=== PATIENT | male | born 1975 | race Caucasian/White ===

== ENCOUNTER 2017-02-19 19:11 | Emergency (ER) | payer BC ==
--- NOTE | 2017-02-19 19:20 | EDM.PDOC ---
ED HPI GENERAL MEDICAL PROBLEM - General Chief Complaint: General Stated Complaint: FALL LADDER/LT RIBCAGE PAIN Time Seen by Provider: 02/19/17 19:13 Source of Information: Reports: Patient History Limitations: Reports: No Limitations - History of Present Illness INITIAL COMMENTS - FREE TEXT/NARRATIVE: HISTORY AND PHYSICAL: Left rib pain History of present illness: Patient is a 42-year-old male that presents to the emergency room with complaints of left rib pain after falling approximately 6 feet off a ladder. Denies any loss of consciousness. Denies any neck pain. Some generalized back pain as he does have some history of "bulging disks". Review of systems: As per history of present illness and below otherwise all systems reviewed and negative. Past medical history: As per history of present illness and as reviewed below otherwise noncontributory. Surgical history: As per history of present illness and as reviewed below otherwise noncontributory. Social history: No reported history of drug or alcohol abuse. Family history: As per history of present illness and as reviewed below otherwise noncontributory. Physical exam: HEENT: Atraumatic, normocephalic, pupils reactive, negative for conjunctival pallor or scleral icterus, mucous membranes moist, throat clear, neck supple, nontender, trachea midline. Cervical spine palpated with no tenderness, crepitus , step-offs, or obvious deformities. Lungs: Clear to auscultation, breath sounds equal bilaterally, chest nontender. Heart: S1S2, regular, negative for clicks, rubs, or JVD. Abdomen: Soft, nondistended, nontender. Negative for masses or hepatosplenomegaly. Negative for costovertebral tenderness. Pelvis: Stable nontender. Genitourinary: Deferred. Rectal: Deferred. Back: Spine was palpated with no tenderness to palpation, crepitus, step-offs, or obvious deformities. Extremities: Bruising noted to chest wall with tenderness to palpation. Neurovascular unremarkable. Denies any numbness or tingling to extremities. Neuro: Awake, alert, oriented. Cranial nerves II through XII unremarkable. Cerebellum unremarkable. Motor and sensory unremarkable throughout. Exam nonfocal. Diagnostics: X-ray left rib and 2 view chest Therapeutics: Toradol 60 mg IM Impression: Contusion Plan: 1. Apply ice to the area as needed for discomfort. May take Tylenol and/or ibuprofen as directed for pain and discomfort. 2. Please do not avoid coughing or deep breathing as discussed. 3. Follow up with her primary care provider 1-2 days. Return to the emergency room as needed as discussed. Definitive disposition and diagnosis as appropriate pending reevaluation and review of above. Onset: Today Onset Date: 02/19/17 Onset Time: 14:00 Duration: Hour(s): Location: Reports: Chest (Left) Improves with: Reports: Rest Worsens with: Reports: Breathing left rib area Pain Score (Numeric/FACES): 5 - Related Data Allergies Allergy/AdvReac Type Severity Reaction Status Date / Time No Known Allergies Allergy Verified 08/01/16 13:43 Home Meds: Home Meds Omeprazole 20 mg PO DAILY 10/24/13 [History] Amoxicillin/Potassium Clav [Augmentin 875-125 Tablet] 1 each PO BID #14 tablet 08/01/16 [Rx] Past Medical History HEENT History: Reports: Otitis Media, Sinusitis Gastrointestinal History: Reports: GERD Social & Family History - Family History Family Medical History: Noncontributory - Tobacco Use Smoking Status *Q: Never Smoker Years of Tobacco use: 12 - Caffeine Use Caffeine Use: Reports: None - Alcohol Use Days Per Week of Alcohol Use: 0 Number of Drinks Per Day: 0 Total Drinks Per Week: 0 - Recreational Drug Use Recreational Drug Use: No Drug Use in Last 12 Months: No ED ROS GENERAL - Review of Systems Review Of Systems: ROS reveals no pertinent complaints other than HPI. ED EXAM, GENERAL - Physical Exam Exam: See Below (See dictation) Course - Vital Signs Last Recorded V/S: Last Vital Signs Temp 36.8 C 02/19/17 19:17 Pulse 84 02/19/17 19:17 Resp 18 02/19/17 19:17 BP 121/76 02/19/17 19:17 Pulse Ox 98 02/19/17 19:17 - Orders/Labs/Meds Orders: Active Orders 24 hr Category Date Time Status Chest 2V [CR] Stat Exams 02/19/17 19:17 Taken Ribs 2V wo Chest Lt [CR] Stat Exams 02/19/17 19:17 Taken Meds: Medications Discontinued Medications Generic Name Dose Route Start Last Admin Trade Name Freq PRN Reason Stop Dose Admin Ketorolac Tromethamine 60 mg 02/19/17 19:21 02/19/17 19:50 Toradol IM 02/19/17 19:22 60 mg ONETIME ONE Administration Departure - Departure Time of Disposition: 19:55 Disposition: Home, Self-Care 01 Condition: Good Clinical Impression: Rib injury - Discharge Information Referrals: PCP,None [Primary Care Provider] - Forms: ED Department Discharge Additional Instructions: The following information is given to patients seen in the emergency department who are being discharged to home. This information is to outline your options for follow-up care. We provide all patients seen in our emergency department with a follow-up referral. The need for follow-up, as well as the timing and circumstances, are variable depending upon the specifics of your emergency department visit. If you don't have a primary care physician on staff, we will provide you with a referral. We always advise you to contact your personal physician following an emergency department visit to inform them of the circumstance of the visit and for follow-up with them and/or the need for any referrals to a consulting specialist. The emergency department will also refer you to a specialist when appropriate. This referral assures that you have the opportunity for followup care with a specialist. All of these measure are taken in an effort to provide you with optimal care, which includes your followup. Under all circumstances we always encourage you to contact your private physician who remains a resource for coordinating your care. When calling for followup care, please make the office aware that this follow-up is from your recent emergency room visit. If for any reason you are refused follow-up, please contact the [facility] emergency department at and asked to speak to the emergency department charge nurse. [facility] [address] [place] [id number] 1. Apply ice to the area as needed for discomfort. May take Tylenol and/or ibuprofen as directed for pain and discomfort. 2. Please do not avoid coughing or deep breathing as discussed. 3. Follow up with her primary care provider 1-2 days. Return to the emergency room as needed as discussed. - My Orders Last 24 Hours: My Active Orders 02/19/17 19:17 Chest 2V [CR] Stat Ribs 2V wo Chest Lt [CR] Stat - Assessment/Plan Last 24 Hours: My Active Orders 02/19/17 19:17 Chest 2V [CR] Stat Ribs 2V wo Chest Lt [CR] Stat
[2017-02-19] MEDS ORDERED: Ketorolac 60 MG/2 ML SDV IM ONE (19:21)
[2017-02-19 20:04] VITALS: BP 117/73
--- NOTE | 2017-02-23 12:52 | CR ---
EXAM DATE: 02/19/17 PATIENT'S AGE: 42 Patient: ANGELINA GARCIA Facility: [place], [place] Site . Site : 1975 Study: XRay Chest [id number]/1/2017 7:41:17 PM Ordering Physician: Doctor Alvarez Final Report: INDICATION: Fall TECHNIQUE: Chest 2 views. COMPARISON: None available FINDINGS: Cardiovascular and mediastinum: Heart size and vasculature are normal in caliber and appearance. Mediastinum is within normal limits. Lungs and pleural spaces: Lungs are clear. No sign of infiltrate or mass. No sign of pleural effusion. No pneumothorax. Bones and soft tissues: No significant findings. IMPRESSION: No sign of acute disease. Dictated by Femi William MD @ 02/19/2017 7:46:23 PM Dictated by: Femi William MD @ 02/19/2017 19:46:28 (Electronic Signature) Report Signed by Proxy. [email or web address]
--- NOTE | 2017-02-23 12:54 | CR ---
EXAM DATE: 02/19/17 PATIENT'S AGE: 42 Patient: ANGELINA GARCIA Facility: [place], [place] Site . Site : 1975 Study: XRay Chest RIBS [id number]/1/2017 7:41:40 PM Ordering Physician: Doctor Alvarez Final Report: INDICATION: Fall TECHNIQUE: Three views of the left ribs. COMPARISON: None available FINDINGS/IMPRESSION : No acute displaced rib fracture is seen. No discrete soft tissue abnormality identified. Dictated by Femi William MD @ 02/19/2017 7:49:34 PM Dictated by: Femi William MD @ 02/19/2017 19:50:13 (Electronic Signature) Report Signed by Proxy. MARGY
== END 2017-02-19 20:04 | disposition home or self-care (01) ==
LOC: MW.ED 19:11
DX: S20.212A Contusion of left front wall of thorax, initial encounter (principal); W11.XXXA Fall on and from ladder, initial encounter
CPT/HCPCS: 71020; 71100; 96372; 99283; J1885

== ENCOUNTER 2018-01-22 13:59 | Emergency (ER) | payer BC ==
--- NOTE | 2018-01-22 14:14 | EDM.PDOC ---
ED HPI GENERAL MEDICAL PROBLEM - General Chief Complaint: Upper Extremity Injury/Pain Stated Complaint: SMASHED RIGHT MIDDLE FINGER Time Seen by Provider: 01/22/18 14:01 Source of Information: Reports: Patient History Limitations: Reports: No Limitations - History of Present Illness INITIAL COMMENTS - FREE TEXT/NARRATIVE: HISTORY AND PHYSICAL: History of present illness: Patient is a 43-year-old male who is brought to the emergency room with complaints of a crush injury to his right third distal digit. He states that this finger was crushed by a trailer hitch. Small laceration to pad of finger with some bruising under the proximal base of nail bed. Tetanus is up-to-date. Review of systems: As per history of present illness and below otherwise all systems reviewed and negative. Past medical history: As per history of present illness and as reviewed below otherwise noncontributory. Surgical history: As per history of present illness and as reviewed below otherwise noncontributory. Social history: No reported history of drug or alcohol abuse. Family history: As per history of present illness and as reviewed below otherwise noncontributory. Physical exam: General: Well-developed and well-nourished 43-year-old male. Alert and oriented. Nontoxic appearing and in no acute distress. HEENT: Atraumatic, normocephalic, pupils equal and reactive bilaterally, negative for conjunctival pallor or scleral icterus, mucous membranes moist, throat clear, neck supple, nontender, trachea midline. No drooling or trismus noted. No meningeal signs Lungs: Clear to auscultation, breath sounds equal bilaterally, chest nontender. Heart: S1S2, regular rate and rhythm without overt murmur Abdomen: Soft, nondistended, nontender. Negative for masses or hepatosplenomegaly. Negative for costovertebral tenderness. Pelvis: Stable nontender. Genitourinary: Deferred. Rectal: Deferred. Skin: 0.5cm superficial laceration to the distal portion of the pad on the right third digit. Bruising under the proximal nail bed of the affected finger. Pain with palpation. Otherwise skin is intact, warm, dry. No lesions or rashes noted. Extremities: Moves all per self, pain with palpation along the distal finger tip of right 3rd digit. Cap refill less than 3 seconds. No other extremity involvement. Neurovascular unremarkable. Neuro: Awake, alert, oriented. Cranial nerves II through XII unremarkable. Cerebellum unremarkable. Motor and sensory unremarkable throughout. Exam nonfocal. Notes: No fracture or dislocation identified. Place patient in a spoon splint after wound care/dressing applied. Supportive care measures were reviewed and discussed. He voices understanding and is agreeable to plan of care. Denies any further questions or concerns at this time. Diagnostics: X-ray Therapeutics: Wound Care, Bacitracin Ointment, Finger Splint Prescription: Tramadol (Disp #15) Impression: Crush Injury, Right Plan: 1. Rest, ice, elevate the affected extremity. Wear Splint for comfort. 2. Tylenol and/or ibuprofen as needed for pain management. Tramadol for moderate /severe pain. May cause drowsiness, do not drive while taking. 3. Follow-up with your primary care provider in the next 1-2 days. Return to the ED as needed and as discussed. Definitive disposition and diagnosis as appropriate pending reevaluation and review of above. Right middle finger Pain Score (Numeric/FACES): 5 - Related Data Allergies Allergy/AdvReac Type Severity Reaction Status Date / Time No Known Allergies Allergy Verified 01/22/18 14:15 Home Meds: Home Meds Omeprazole 20 mg PO DAILY 10/24/13 [History] Past Medical History HEENT History: Reports: Otitis Media, Sinusitis Cardiovascular History: Reports: None Respiratory History: Reports: None Gastrointestinal History: Reports: GERD Genitourinary History: Reports: None Musculoskeletal History: Reports: None Neurological History: Reports: None Psychiatric History: Reports: None Endocrine/Metabolic History: Reports: None Hematologic History: Reports: None Immunologic History: Reports: None Oncologic (Cancer) History: Reports: None Dermatologic History: Reports: None - Infectious Disease History Infectious Disease History: Reports: Chicken Pox - Past Surgical History Head Surgeries/Procedures: Reports: None HEENT Surgical History: Reports: Oral Surgery Male Surgical History: Reports: Vasectomy Social & Family History - Family History Family Medical History: Noncontributory - Caffeine Use Caffeine Use: Reports: None Review of Systems - Review of Systems Review Of Systems: ROS reveals no pertinent complaints other than HPI. ED EXAM, GENERAL - Physical Exam Exam: See Below (See dictation) Course - Vital Signs Last Recorded V/S: Last Vital Signs Temp 97.0 F 08/04/18 14:16 Pulse 89 01/22/18 14:16 Resp 14 01/22/18 14:16 BP 141/81 H 01/22/18 14:16 Pulse Ox 95 01/22/18 14:16 - Orders/Labs/Meds Orders: Active Orders 24 hr Category Date Time Status Communication Order [RC] STAT Care 01/22/18 14:25 Active Fingers Third Digit Rt F7 [CR] Stat Exams 01/22/18 14:02 Taken Meds: Medications Discontinued Medications Generic Name Dose Route Start Last Admin Trade Name Sravanthi PRN Reason Stop Dose Admin Bacitracin 1 dose 01/22/18 14:25 Bacitracin Oint 1 Gm TOP 01/22/18 14:26 ONETIME ONE Departure - Departure Time of Disposition: 14:38 Disposition: Home, Self-Care 01 Clinical Impression: Crush injury - Discharge Information Instructions: Crush Injury of the Hand, [id number] Referrals: PCP,None [Primary Care Provider] - Forms: ED Department Discharge Additional Instructions: The following information is given to patients seen in the emergency department who are being discharged to home. This information is to outline your options for follow-up care. We provide all patients seen in our emergency department with a follow-up referral. The need for follow-up, as well as the timing and circumstances, are variable depending upon the specifics of your emergency department visit. If you don't have a primary care physician on staff, we will provide you with a referral. We always advise you to contact your personal physician following an emergency department visit to inform them of the circumstance of the visit and for follow-up with them and/or the need for any referrals to a consulting specialist. The emergency department will also refer you to a specialist when appropriate. This referral assures that you have the opportunity for follow-up care with a specialist. All of these measure are taken in an effort to provide you with optimal care, which includes your follow-up. Under all circumstances we always encourage you to contact your private physician who remains a resource for coordinating your care. When calling for follow-up care, please make the office aware that this follow-up is from your recent emergency room visit. If for any reason you are refused follow-up, please contact the [facility] Emergency Department at and asked to speak to the emergency department charge nurse. [facility] [address] [place] [id number] 1. Rest, ice, elevate the affected extremity. Wear Splint for comfort. 2. Tylenol and/or ibuprofen as needed for pain management. Tramadol for moderate /severe pain. May cause drowsiness, do not drive while taking. 3. Follow-up with your primary care provider in the next 1-2 days. Return to the ED as needed and as discussed. - My Orders Last 24 Hours: My Active Orders 01/22/18 14:02 Fingers Third Digit Rt F7 [CR] Stat 01/22/18 14:25 Communication Order [RC] STAT - Assessment/Plan Last 24 Hours: My Active Orders 01/22/18 14:02 Fingers Third Digit Rt F7 [CR] Stat 01/22/18 14:25 Communication Order [RC] STAT
[2018-01-22] MEDS ORDERED: Bacitracin Oint 1 GM U/D Packet TOP ONE (14:25)
[2018-01-22 19:28] VITALS: BP 118/71
--- NOTE | 2018-01-24 11:39 | CR ---
EXAM DATE: 01/22/18 PATIENT'S AGE: 43 Patient: ANGELINA GARCIA Facility: [place], [place] Site . Site : 1975 Study: XRay Extremity Right 3rd digit [id number]/4/2018 2:22:45 PM Ordering Physician: Doctor Alvarez Final Report: Crush injury. Three views of the right 3rd finger. Findings : Cortical irregularity of along the distal tip of the right 3rd distal phalanx suggest probable fracture. There is soft tissue swelling. There is normal alignment. Dictated by Antonella Baez MD @ Jan 22 2018 2:32PM (Electronic Signature) Report Signed by Proxy. MARGY
== END 2018-01-22 15:05 | disposition home or self-care (01) ==
LOC: MW.ED 13:59
DX: S67.192A Crushing injury of right middle finger, initial encounter (principal); S61.212A Laceration without foreign body of right middle finger without damage to nail, initial encounter; S60.131A Contusion of right middle finger with damage to nail, initial encounter; W23.1XXA Caught, crushed, jammed, or pinched between stationary objects, initial encounter
CPT/HCPCS: 73140-26-F7; 73140-F7; 99282; 99283

== ENCOUNTER 2018-03-14 09:13 | Day surgery (SDC) | payer BC ==
[~2018-03-14 09:13] MED LIST: Lactated Ringers 1,000 ML IV SCH
[2018-03-14] MEDS ORDERED: fentaNYL 100 MCG/2 ML SDV ONE (10:11)
[2018-03-14] MEDS ORDERED: Midazolam 1 MG/ML 2 ML SDV ONE (10:11)
[2018-03-14] MEDS ORDERED: Lidocaine 2% 5 ML SDV ONE (10:11)
[2018-03-14] MEDS ORDERED: Propofol 200 MG/20 ML SDV ONE ×2 (10:11→12:46)
--- NOTE | 2018-03-14 10:30 | PCM.PREANE ---
Preanesthetic Assessment - Procedure Proposed Procedure: EGD and Colonoscopy - Anesthesia/Transfusion/Family Hx Anesthesia History: Prior Anesthesia Without Reaction Other Type of Anesthesia Reaction Comment: DENIES ANY PROBLEMS WITH ANESTHESIA Family History of Anesthesia Reaction: No Transfusion History: No Prior Transfusion(s) Intubation History: Unknown - Review of Systems General: No Symptoms Pulmonary: No Symptoms Cardiovascular: No Symptoms Gastrointestinal: Other (GERD; intermittent rectal blood seen) Neurological: No Symptoms Other: Reports: None - Physical Assessment NPO Status Date: 03/13/18 NPO Status Time: 23:00 O2 Sat by Pulse Oximetry: 98 Respiratory Rate: 16 Vital Signs: Last Vital Signs Temp 96.8 F 03/14/18 09:55 Pulse 84 03/14/18 09:55 Resp 16 03/14/18 09:55 BP 134/80 03/14/18 09:55 Pulse Ox 98 03/14/18 09:55 Height: 5 ft 9 in Weight: 213 lb ASA Class: 2 Mental Status: Alert & Oriented x3 Airway Class: Mallampati = 1 Dentition: Reports: Normal Dentition Thyro-Mental Finger Breadths: 3 Mouth Opening Finger Breadths: 3 ROM/Head Extension: Full Lungs: Clear to Auscultation, Normal Respiratory Effort Cardiovascular: Regular Rate, Regular Rhythm, No Murmurs - Allergies Allergies/Adverse Reactions: Allergies Allergy/AdvReac Type Severity Reaction Status Date / Time No Known Allergies Allergy Verified 03/10/18 11:45 - Blood Blood Available: No Product(s) Available: None - Anesthesia Plan Pre-Op Medication Ordered: None - Acknowledgements Anesthesia Type Planned: MAC Pt an Appropriate Candidate for the Planned Anesthesia: Yes Alternatives and Risks of Anesthesia Discussed w Pt/Guardian: Yes Pt/Guardian Understands and Agrees with Anesthesia Plan: Yes PreAnesthesia Questionnaire HEENT History: Reports: Otitis Media, Sinusitis Cardiovascular History: Reports: None Respiratory History: Reports: None Gastrointestinal History: Reports: Chronic Diarrhea, Colon Polyp, GERD, Hemorrhoids Genitourinary History: Reports: None Musculoskeletal History: Reports: Arthritis, Back Pain, Chronic Neurological History: Reports: Concussion, Other (See Below) Other Neuro History: hx of motion sickness Psychiatric History: Reports: None Endocrine/Metabolic History: Reports: Obesity/BMI 30+ Hematologic History: Reports: None Immunologic History: Reports: None Oncologic (Cancer) History: Reports: None Dermatologic History: Reports: Psoriasis Other Dermatologic History: on his leg- comes and goes - Infectious Disease History Infectious Disease History: Reports: Chicken Pox - Past Surgical History HEENT Surgical History: Reports: LASIK, Naso-Sinus Surgery GI Surgical History: Reports: Colonoscopy, EGD Male Surgical History: Reports: Vasectomy - SUBSTANCE USE Smoking Status *Q: Former Smoker Tobacco Use Within Last Twelve Months: No Recreational Drug Use History: No - HOME MEDS Home Medications: Home Meds Omeprazole 20 mg PO DAILY 10/24/13 [History] Ibuprofen 3,200 mg PO ASDIRECTED PRN 03/10/18 [History] - CURRENT (IN HOUSE) MEDS Current Meds: Current Medications Lactated Ringer's (Ringers, Lactated) 1,000 mls @ 125 mls/hr IV ASDIRECTED MARIAN Last Admin: 03/14/18 09:55 Dose: 125 mls/hr Discontinued Medications Fentanyl (Sublimaze) Confirm Administered Dose 100 mcg .ROUTE .STK-MED ONE Stop: 03/14/18 10:12 Lidocaine (Xylocaine-Mpf 2%) Confirm Administered Dose 5 ml .ROUTE .STK-MED ONE Stop: 03/14/18 10:12 Midazolam HCl (Versed 1 Mg/Ml) Confirm Administered Dose 2 mg .ROUTE .STK-MED ONE Stop: 03/14/18 10:12 Propofol (Diprivan 20 Ml) Confirm Administered Dose 400 mg .ROUTE .STK-MED ONE Stop: 03/14/18 10:12
--- NOTE | 2018-03-14 13:09 | PCM.OPNOTE ---
- General Post-Op/Procedure Note Date of Surgery/Procedure: 03/14/18 Operative Procedure(s): Esophagogastroduodenoscopy with biopsy. Colonoscopy. Pre Op Diagnosis: Persistent and progressive gastroesophageal reflux disease. Rectal bleeding. Personal and family history of colon polyps. Post-Op Diagnosis: Mild gastritis. No evidence of colonic neoplasia. Anesthesia Technique: MAC (ASA III) Primary Surgeon: Davion Eason [employer] Assistant Manager: Silver Lamas Condition: Good Free Text/Narrative:: DICTATION [id number] CPT CODE [id number]
[2018-03-14] MEDS ORDERED: Lactated Ringers 1,000 ML IV SCH (13:15)
--- NOTE | 2018-03-14 13:44 | PCM.POSTAN ---
POST ANESTHESIA ASSESSMENT - MENTAL STATUS Mental Status: Alert, Oriented - RESPIRATORY Respiratory Status: Respiratory Rate WNL, Airway Patent, O2 Saturation Stable - CARDIOVASCULAR CV Status: Pulse Rate WNL, Blood Pressure Stable - GASTROINTESTINAL GI Status: No Symptoms - POST OP HYDRATION Hydration Status: Adequate & Stable
--- NOTE | 2018-03-14 13:45 | PCM48HPAN ---
Post Anesthesia Note - EVALUATION WITHIN 48HRS OF ANESTHETIC Vital Signs in Normal Range: Yes Patient Participated in Evaluation: Yes Respiratory Function Stable: Yes Airway Patent: Yes Cardiovascular Function Stable: Yes Hydration Status Stable: Yes Pain Control Satisfactory: Yes Nausea and Vomiting Control Satisfactory: Yes Mental Status Recovered: Yes Resp Rate: 12 - COMMENTS/OBSERVATIONS Free Text/Narrative:: to home with SO.
[2018-03-14 15:23] VITALS: BP 139/50
--- NOTE | 2018-03-15 11:28 | OR ---
SURGEON: Davion Eason M.D. DATE OF PROCEDURE: 03/14/2018 OPERATION PERFORMED: Colonoscopy. BARISTA: Silver Lamas MD ANESTHESIA: MAC. ASA CLASSIFICATION: II. PREOPERATIVE DIAGNOSES: 1. Rectal bleeding. 2. Personal history of colon polyps. 3. Family history of colon polyps. POSTOPERATIVE DIAGNOSIS: No evidence of neoplasia. DESCRIPTION OF PROCEDURE: With the patient having completed esophagogastroduodenoscopy with biopsy and maintained in the left lateral decubitus position, the colonoscope was inserted into the rectum and advanced with minimal difficulty to the cecum where the colonoscope was retroflexed to visualize the ascending colon from below. The colonoscope was then straightened and slowly withdrawn. Cecum, ascending colon, hepatic flexure, transverse colon, splenic flexure, descending colon, sigmoid colon, and rectum were very well visualized. No tumors, polyps, diverticula, or angiodysplastic changes were noted anywhere in the lower gastrointestinal tract. Once the colonoscope was withdrawn to the rectum, it was retroflexed to visualize the anal orifice from above. No tumors or polyps were seen and there were no acute hemorrhoidal changes nor any bleeding noted on examination today. The colonoscope was then straightened the rectum aspirated, and the colonoscope removed. The patient tolerated the procedure well and was taken to recovery room in stable condition. ROBERT / JUAN /[id number]
--- NOTE | 2018-03-15 11:28 | OR ---
SURGEON: Davion Eason M.D. DATE OF PROCEDURE: 03/14/2018 OPERATION PERFORMED: Esophagogastroduodenoscopy with biopsy. [employer] OPERATOR: Silver Lamas MD ANESTHESIA: MAC. ASA CLASSIFICATION: II. PREOPERATIVE DIAGNOSIS: Persistent epigastric pain with heartburn. POSTOPERATIVE DIAGNOSIS: Mild gastritis. DESCRIPTION OF PROCEDURE: The patient was taken to the endoscopy room and positioned on the endoscopy table in the left lateral decubitus position. Time-out was called for appropriate identification of the patient and procedure. Monitored anesthesia care was provided. A bite block was placed between the patient's teeth. The gastroscope was inserted through the bite block, into the oropharynx and advanced without difficulty through the esophagus and stomach, into the duodenum where examination could be carried out in a retrograde fashion. The duodenum shows no acute inflammatory changes or ulcerations. The stomach does show mild- to-moderate gastritis. No ulcerations were noted. Antral biopsies were obtained to look for the presence of Helicobacter pylori. The gastroscope was then retroflexed to visualize the proximal stomach. No lesions were noted in the cardia. No significant hiatal hernia was noted. The gastroscope was then slowly withdrawn visualizing the GE junction, which again shows no acute inflammatory changes or ulcerations. The esophagus demonstrated good contractility. No mid or proximal lesions were identified. The vocal cords were briefly visualized as the scope was withdrawn and noted to move symmetrically. The gastroscope was then removed with the patient having tolerated the procedure well. Following colonoscopy, he was taken to recovery room in stable condition. ROBERT / JUAN /[id number]
== END 2018-03-14 14:00 | disposition home or self-care (01) ==
LOC: MW.SDS 09:13
PROVIDERS: ATTEND Surgery
DX: K29.50 Unspecified chronic gastritis without bleeding (principal); K62.5 Hemorrhage of anus and rectum; K21.9 Gastro-esophageal reflux disease without esophagitis; E66.9 Obesity, unspecified; Z68.31 Body mass index [BMI] 31.0-31.9, adult; K90.49 Malabsorption due to intolerance, not elsewhere classified; Z87.891 Personal history of nicotine dependence; Z86.010 Personal history of colon polyps; Z79.899 Other long term (current) drug therapy; Z83.71 Family history of colonic polyps
CPT/HCPCS: 43239; 45378; J2250; J2704; J3010; J7120; 88305; 88312

== ENCOUNTER 2023-06-09 10:33 | Emergency (ER) | payer BC ==
[2023-06-09] MEDS ORDERED: Sodium Chloride 0.9% 1,000 ML IV ONE (10:57)
[2023-06-09 11:20] LABS: BASOPHILS ABSOLUTE AUTO 0.07 K/uL (0.00-0.20); BASOPHILS PERCENT AUTO 0.7 % (0.0-1.0); EOSINOPHILS ABSOLUTE AUTO 0.14 K/uL (0.00-0.45); EOSINOPHILS PERCENT AUTO 1.5 % (0.0-6.0); HEMATOCRIT 45.7 % (42.0-52.0); IMMATURE GRAN ABSOLUTE AUTO 0.02 K/uL (0.00-0.05); IMMATURE GRAN PERCENT AUTO 0.2 % (0.0-0.4); LYMPHOCYTES ABSOLUTE AUTO 2.64 K/uL (1.00-4.80); LYMPHOCYTES PERCENT AUTO 28.3 % (24.0-44.0); MEAN CORPUSCULAR HEMOGLOBIN 27.5 pg (28.0-32.0); MEAN CORPUSCULAR VOLUME 78.5 fL (83.0-99.0); MEAN PLATELET VOLUME 8.5 fL (9.4-12.4); MONOCYTES ABSOLUTE AUTO 0.62 K/uL (0.00-0.80); MONOCYTES PERCENT AUTO 6.6 % (0.0-8.0); NEUTROPHILS ABSOLUTE AUTO 5.85 K/uL (1.80-7.70); NEUTROPHILS PERCENT AUTO 62.7 % (41.0-71.0); PLATELET COUNT,PLT 275 K/uL (150-400); RED BLOOD CELL COUNT 5.82 M/uL (4.52-5.90); WHITE BLOOD CELL COUNT,WBC 9.34 K/uL (3.9-11.3)
[2023-06-09 11:53] LABS: LACTIC ACID 0.9 mmol/L (0.4-2.0)
[2023-06-09 11:54] LABS: A/G RATIO 1.1 (0.9-1.6); ALBUMIN 4.1 g/dL (3.4-5.0); BILIRUBIN TOTAL 0.3 mg/dL (0.2-1.0); CALCIUM 8.9 mg/dL (8.5-10.1); CREATININE 1.1 mg/dL (0.8-1.3); EST CRCL DRUG DOSING (CG) 83.02 mL/min; POTASSIUM,K 3.7 mmol/L (3.5-5.1); PROTEIN TOTAL,TP 7.8 g/dL (6.4-8.2)
[2023-06-09] MEDS ORDERED: Iopamidol 755 MG/ML 500 ML Multipack Bottle IVPUSH STA (12:17)
[2023-06-09 12:19] LABS: INR 0.99 (0.86-1.11); PTT,PARTIAL THROMBOPLSTIN TIME 31.2 SEC (23.9-30.7)
[2023-06-09] MEDS ORDERED: Iopamidol 612 MG/ML 100 ML Bottle IVPUSH STA (12:49)
[2023-06-09 14:43] VITALS: BP 129/89; PULSE 72
== END 2023-06-09 14:42 | disposition home or self-care (01) ==
LOC: MW.ED 10:33
DX: K92.1 Melena (principal); R19.7 Diarrhea, unspecified
CPT/HCPCS: 36415; 74174; 80053; 83605; 83690; 85025; 85610; 85730; 96360; 99284; J7030; Q9967

== ENCOUNTER 2023-07-19 12:06 | Day surgery (SDC) | payer BC ==
[2023-07-19] MEDS ORDERED: propofoL 50 ML ONE ×2 (13:37→13:41)
[2023-07-19] MEDS ORDERED: Lactated Ringers 1,000 ML IV SCH (14:30)
[2023-07-19 14:55] VITALS: BP 95/58; PULSE 76
== END 2023-07-19 15:02 | disposition home or self-care (01) ==
LOC: MW.SDS 12:06
PROVIDERS: ATTEND Surgery
DX: K21.00 Gastro-esophageal reflux disease with esophagitis, without bleeding (principal); K31.89 Other diseases of stomach and duodenum; K29.50 Unspecified chronic gastritis without bleeding; K29.80 Duodenitis without bleeding; D12.8 Benign neoplasm of rectum; F41.9 Anxiety disorder, unspecified; E66.9 Obesity, unspecified; Z68.32 Body mass index [BMI] 32.0-32.9, adult; F17.210 Nicotine dependence, cigarettes, uncomplicated; Z79.899 Other long term (current) drug therapy
CPT/HCPCS: 43239; 45378; J2704; J7120; 00813